=== PATIENT | male | born 1965 | race Caucasian/White ===

== ENCOUNTER 2021-08-14 07:57 | Outpatient (REF) | payer MEDICARE, OTHER, SELFPAY ==
[2021-08-14 11:12] LABS: MANUAL DIFF FLAG NO
[2021-08-14 11:21] LABS: Basophils Percent Auto 0.6 % (0-2); Eosinophils Absolute Auto 0.2 X10*3/uL (0.0-0.4); Eosinophils Percent Auto 3.1 % (0-4); Hematocrit 48.4 % (42.0-52.0); Imm Gran Abs Auto 0.05 X10*3/uL (0.00-0.03); Imm Gran Pct Auto 0.7 % (0.0-0.4); Lymphocytes Absolute Auto 2.1 X10*3/uL (1.2-4.9); Mean Corpuscular HGB Conc 33.1 g/dl (31.0-36.0); Mean Corpuscular Hemoglobin 31.4 pg (27.0-33.0); Mean Corpuscular Volume 95.1 fL (80.0-98.0); Mean Platelet Volume 10.9 fL (9.4-12.4); Monocytes Absolute Auto 0.6 X10*3/uL (0.1-1.2); Neutrophils Absolute Auto 4.1 x10*3/uL (2.0-8.3); Neutrophils Percent Auto 57.6 % (45-73); Platelet Count 273 X10*3/uL (160-400); Red Blood Count 5.09 X10*6/uL (4.60-5.80); Red Cell Distribution Width 12.2 % (11.0-16.0); White Blood Count 7.1 X10*3/uL (4.8-10.8)
[2021-08-14 11:24] LABS: Appearance Urine CLEAR; Color Urine YELLOW; Glucose Urine UA NEG (NEG); Leukocyte Esterase Urine NEG (NEG); Nitrite Urine NEG (NEG); PH 6.5 (5.0-8.0); Specific Gravity - Urine 1.025 (1.005-1.025); Urine Blood NEG (NEG); Urine Ketones NEG (NEG); Urine Protein NEG (NEG-TRACE)
[2021-08-14 12:03] LABS: Prostate Specific Antigen Scr 0.75 ng/mL (<0.05-4.0); TSH reflex Free T4 0.92 uIU/mL (0.32-4.0)
[2021-08-14 12:06] LABS: Alanine Aminotransferase 22 U/L (0-40); Albumin Level 3.8 g/dL (3.5-5.0); Alkaline Phosphatase 55 U/L (39-117); Anion Gap 12 (12-20); Aspartate Amino Transferase 21 U/L (5-37); Bilirubin Total 1.1 mg/dL (0.0-1.0); Blood Urea Nitrogen 19 mg/dL (9-16); Calcium 9.3 mg/dL (8.4-10.2); Carbon Dioxide 28 mmol/L (22-29); Chloride 108 mmol/L (96-108); Cholesterol 212 mg/dL; Estimated Glomerular Filt Rate > 60; Glucose Fasting 101 mg/dL (60-99); HDL Cholesterol 39 mg/dL; LDL Cholesterol Calculated 155 mg/dl; Potassium 4.6 mmol/L (3.3-5.1); Sodium 143 mmol/L (135-145); Total Protein 7.1 g/dL (6.5-8.0); Triglycerides 92 mg/dL
[2021-08-14 12:57] LABS: Leukocytes Stool Qualitative NEGATIVE (NEGATIVE)
== END 2021-08-14 07:58 | disposition home or self-care (01) ==
LOC: HO.HMGCLDS 07:57
PROVIDERS: PCP Nurse Practitioner Family; Visit Provider Nurse Practitioner Family
DX: Z00.00 Encounter for general adult medical examination without abnormal findings (principal); Z12.5 Encounter for screening for malignant neoplasm of prostate; B83.9 Helminthiasis, unspecified
CPT/HCPCS: 36415; 80053; 80061; 81003; 84153; 84443; 85025; 87015; 87045; 87046; 87177; 87207; 87209; 87329; 89055

== ENCOUNTER 2024-07-25 15:30 | Outpatient (AMB) | payer MEDICARE, MEDICAID, SELFPAY ==
--- NOTE | 2024-07-25 15:37 | MHC.OFFWIV ---
Intake Vital Signs 07/25/24 15:38 Weight 238 lb BP 120/80 Blood Pressure Location Rt brachial Position Sitting Pulse 84 Pulse Source Pulse Oximeter Pulse Oximetry (%) 97 Oxygen Delivery Method Room Air Intake Visit Reasons: EP LT Ear Intake Note: Patient here for left ear pain that has been ongoing for a while now. Patient Tobacco Use Status: Never used Tobacco Allergies No Known Allergies Allergy (Verified 07/25/24 15:39) Do you need a note to return to daycare/school/sports/work: No HPI HPI Comments History of Present Illness Details Patient is a 59yo M with hx of Lt ear pain Starting in 2020 he had an incident where he beleived he perforated his TM with a Q tip He said he was having pain, headaches etc Was seen in the office for this issue and had ear cleaned and given neomysin for issue Issue has been ongoing for a while now with intermittent L ear pain and pressure and intermittent ringing At the same time has had ongoing intermittent L lower gum abscess He has been seeing a dentist for this issue and referred to maxillofacial surgeon and waiting on an appointment for them He denies R sided symptoms 3.5 weeks ago he tried a left over ampicillin which helped but feels like gum and ear pain worse again Has had 4-6 attempts of amoxicillin in [id number] Pain level currently minimal. States symptoms worse when tired Pressure L sided ear with ringing; low whistle sound States intermittent L lower gum white abscess with drainage Said sometimes feels like LN swollen on L side No fever No cold symptoms of cough, congestion, CP or SOB currently He called the office and they told him to come to the walk in for possible PCP referral to ENT Also states stye to R lower eyelid Present x 2 years No pain, 0/10 No drainage aside from when he tried to pop it and it was clear drainage PFSH Social History Patient Tobacco Use Status: Never used Tobacco Current occupational status: disabled Cognitive needs: No Hearing needs: No Vision needs: No Review of Systems Const Denies chills, Denies fever(s) and Denies headache(s) Eyes Denies change in vision and Reports other (stye R lower eyelid) ENT Denies dizziness, Reports otalgia, Denies headache(s), Reports mouth lesions, Reports mouth pain, Denies nasal congestion, Denies nasal discharge, Denies sinus pressure, Denies sore throat, Denies throat swelling and Denies tongue swelling Card Denies chest pain, Denies syncope and Denies dyspnea Resp Denies chest congestion, Denies cough and Denies dyspnea Musc Denies myalgias Skin/Breast Denies rash Neuro Denies confusion, Denies dizziness, Denies syncope and Denies headache(s) Psych Denies confusion Aller/Immun Denies throat swelling and Denies tongue swelling Physical Exam Vital Signs: Last Vital Signs Pulse 84 07/25/24 15:38 BP 120/80 07/25/24 15:38 Pulse Ox 97 07/25/24 15:38 Oxygen Delivery Method Room Air 07/25/24 15:38 General: Non-toxic, NAD. Speaking full sentences. Skin: Warm dry throughout Eye: EOMI, PERRL. R lower eyelid has one external white pustule without active discharge. No surrounding erythema or discharge. Non-tender. No conjunctival erythema HENT: Airway patent. Uvula midline. No pharyngeal erythema or edema. No DIRECT MARKETING MANAGER. L lower gingivae lateral to tooth #18 pt has small vesicular lesion with some surroundign gingival edema without active drainage. No other dental abscesses or lesions noted Bilateral canals clear. TM non-erythematous, non-bulging. No TM perforation or hemotympanum noted. No mastoid tenderness to palpation There was small area of cerumen L canal and verbal consent obtained and currette used to remove without complication. Lymph: No lymphadenopathy bilaterally to tonsillar region or neck Respiratory: CTA bilaterally. No wheezes, rales or rhonchi Cardiac: RRR. No murmur MSK: Full ROM extremities. Neurology: Alert. No aphasia or facial droop. Gait without abnormality Psych: Good mood and affect Const General: No confusion Orientation/consciousness: No confusion Neuro General: No confusion Assessment & Plan Assessment & Plan (1) Ear pain, left: Comment: chronic Code(s): H92.02 - Otalgia, left ear Plan: No infection ENT referral potentially from PCP. See extensive note left for PCP (2) Dental abscess: Code(s): K04.7 - Periapical abscess without sinus Plan: Augmentin No sepsis or concern for posterior pharyngeal abscess Discussed head elevation and dental follow up He will call [facility] to see if they accept insurance See PCP note (3) Stye: Comment: chronic Code(s): H00.019 - Hordeolum externum unspecified eye, unspecified eyelid Qualifiers: Laterality: right Eyelid: lower Qualified Code(s): H00.012 - Hordeolum externum right lower eyelid Plan: See note left to PCP. Maybe optho referral Discussed with pt to use warm compress No infection noted Medications: New amoxicillin-pot clavulanate 875-125 mg 1 tab PO BID 14 tabs 0RF Coding Level of Care Code Est Pt Level 3 (46038) Diagnoses Ear pain, left H92.02 Dental abscess K04.7 Hordeolum externum of right lower eyelid H00.012 Laterality: right Eyelid: lower
[2024-07-25 15:38] VITALS: BP 120/80; PULSE 84; O2SAT 97
--- OUTSIDE RECORDS SUMMARY | 2024-07-25 18:01 | XMS_ITS | Clinical Summary ---
Author Organization [facility] Address [address] [place] [address] Care Team Providers Care Business Analyst Consultant Name Role Phone Unavailable Primary Care Provider Unavailabl e Source Comments PLEASE NOTE, if this patient is a minor, it may be UNLAWFUL to discuss sensitive information that is contained in these records (such as FAMILY PLANNING, MENTAL HEALTH or SUBSTANCE ABUSE) with the minor patient's parent or other person without the patient's specific authorization.[facility] Allergies No known active allergies Medications No known medications Active Problems Problem Noted Date Diagnosed Date Chronic back pain 03/29/2014 Social History Tobacco Use Types Packs/Day Years Used Date Smoking Tobacco: Never Alcohol Use Standard Drinks/Week Comments Yes 0 (1 standard drink = 0.6 oz pur e alcohol) sometimes Sex and Gender Information Value Date Recorded Sex Assigned at Not on file Legal Sex Male 12:28 PM PDT Gender Identity Not on file Sexual Orientation Not on file Last Filed Vital Signs Vital Sign Reading Time Taken Comments Blood Pressure 110/70 03/29/2014 2:00 PM EST Pulse 68 03/29/2014 2:00 PM EST Temperature 36.6 ??C (97.8 ??F) 03/29/2014 2:[address] Respiratory Rate 15 03/29/2014 2:00 PM EST Oxygen Saturation - - Inhaled Oxygen Concentration - - Weight 90.3 kg (199 lb) 03/29/2014 2:00 PM EST Height 180.3 cm (5' 11 ) 03/29/2014 2:00 PM EST Body Mass Index 27.75 03/29/2014 2:00 PM EST Plan of Treatment Not on file Insurance [employer]AF[employer] [place]ICARE [place]
== END 2024-07-25 16:26 | disposition home or self-care (01) ==
PROVIDERS: PCP Nurse Practitioner Family; Visit Provider Physician Assistant
DX: H92.02 Otalgia, left ear (principal); K04.7 Periapical abscess without sinus; H00.012 Hordeolum externum right lower eyelid

== ENCOUNTER → 2024-07-25 15:30 | Outpatient (BNVA) | payer MEDICARE, MEDICAID, SELFPAY | PROVIDERS: PCP Nurse Practitioner Family | DX: H92.02 Otalgia, left ear (principal); K04.7 Periapical abscess without sinus; H00.012 Hordeolum externum right lower eyelid | CPT/HCPCS: 99212 ==

== ENCOUNTER 2024-09-26 15:56 | Outpatient (AMB) | payer MEDICARE, MEDICAID, SELFPAY ==
[2024-09-26 16:01] VITALS: BP 118/80; PULSE 83; O2SAT 96; BMI 32.2
--- NOTE | 2024-09-26 16:01 | MHC.PC.OV ---
Vital Signs 09/26/24 16:01 Height 5 ft 11 in Weight 231 lb BMI 32.2 BP 118/80 Blood Pressure Location Lt brachial Position Sitting Pulse 83 Pulse Source Pulse Oximeter Pulse Oximetry (%) 96 Intake Visit Reasons: Annual PE Marketing Operations Intern Required: No Allergies No Known Allergies Allergy (Verified 09/26/24 16:32) Medication List - Last Reconciled 09/26/24 by URBANO Cruz No Known Home Meds Tobacco use date assessed: 09/26/24 Dental Screening Dental Screen Date: 09/26/24 Did you have a dental visit in the last 12 months?: Yes Did you have a dental problem in the last 6 months where you did not have access to dental care?: No Was dental information given to patient?: Patient has dentist HPI Annual PE HPI Details History of Present Illness The patient is a 59-year-old male presenting with a physical exam and complaints of shortness of breath on exertion and a dental abscess. The dental abscess is located on the left lower side, with recurrent pustule formation and pain radiating to the left ea, further describing tinnitus. The patient reports faint erythema and slight tenderness upon touch, with no active bulging or pus noted. He is scheduled to see a dentist next week for further evaluation. The patient also reports (what sounds like) gynecomastia with tenderness in the left breast, particularly just outside of the areola at the 1-3 o'clock position. He recalls previous imaging that showed no cancer but cannot recall specific findings? An ultrasound and mammogram are planned to reassess the condition. The patient denies any history of smoking tobacco but admits to intermittent marijuana use. He denies urinary issues, fevers, chills, blurred vision, abdominal pain, blood in stool, constipation, diarrhea, and active chest pain. He is due for colon cancer screening and has expressed interest in the Cologuard test, which will be ordered. had referred him to GI previously, never went Health Maintenance - Colon cancer screening with Cologuard test ordered Social History - Substance use: Denies tobacco use, admits to intermittent marijuana use Review of Systems - Cardiovascular: Denies chest pain - Respiratory: Reports dyspnea on exertion - Gastrointestinal: Denies abdominal pain, blood in stool, constipation, diarrhea - Genitourinary: Denies urinary issues - Neurological: Denies blurred vision - General: Denies fevers, chills Physical Exam General: Cooperative, healthy appearing, comfortable, no acute distress and well developed Orientation: Patient oriented x3 Limitations: No limitations Head: Normal to inspection Ears: Hearing grossly normal bilaterally, but patient reports pain in the left ear Nose: Normal external nose present Face and sinus: Normal facial exam, on the left lower side with faint erythema and slight tenderness to posterior lower gums, without active drainage or pustule Eyes: Appearance normal, both eyes and all related structures Neck: Normal visual inspection and Yes full ROM, no carotid bruits noted Respiratory: Normal respiratory effort and able to speak in complete sentences. Clear to auscultation bilaterally Cardiovascular: Regular rate and rhythm. Normal S1 and S2 GI: Normal to inspection. Soft to palpation and nontender : Testicles without masses/lesions and no hernias appreciated Skin: No rashes or lesions noted, left breast is larger than right, faint tenderness with palpation to 2-3 O'clock position Neuro: Patient oriented x3 Results Plan The patient will undergo a colon cancer screening using the Cologuard test, as he expressed interest in this non-invasive option. An ultrasound and mammogram are planned to evaluate the gynecomastia in the left breast, given the tenderness and previous imaging history. The patient is advised to follow up with a dentist for the dental abscess, which presents with recurrent pustule formation and pain radiating to the left ear. Patient was informed and verbally consented to the use of an ambient scribe for clinic note documentation during this visit. Discussion Notes I discussed with the patient the importance of addressing the dental abscess with a dentist, as it has been causing recurrent issues and pain. We also talked about the need for further imaging of the left breast to assess the gynecomastia, considering his previous imaging results and current symptoms. The patient was informed about the colon cancer screening options, and he opted for the Cologuard test, which I will order. Patient Instructions - Follow up with your dentist for the dental abscess. - Complete the Cologuard test for colon cancer screening as ordered. - Attend the scheduled ultrasound and mammogram for your left breast. [facility] Surgical History S/P hernia repair S/P wisdom tooth extraction S/P shoulder surgery No pertinent past surgical history Social History Patient Tobacco Use Status: Never used Tobacco e-Cigarette/Vaping Use: Never Used Current occupational status: disabled Cognitive needs: No Hearing needs: No Vision needs: Yes Questionnaire PHQ-9 Over the last 2 weeks, how often have you been bothered by any of the following problems? 59104 - PHQ-9 Billing: Patient declined-do not bill Source: Developed by Drs. Adolfo Bernstein, Corinne Romero, Shne Mosley and colleagues, with an educational estevan from [employer] Thrive Questionnaire Date Thrive assessed: 09/26/24 I am a: Patient What is your living situation today?: I choose not to answer this question Within the past 12 months, did the food you bought not last and you didn't have the money to get more?: I choose not to answer this question Within the past 12 months, did you worry whether your food would run out before you got money to buy more?: I choose not to answer this question Do you have trouble paying for medicines?: I choose not to answer this question Do you have trouble getting transportation to medical appointments?: I choose not to answer this question Do you have trouble paying your heating and electricity bill?: I choose not to answer this question Do you have trouble taking care of your child, family member or friend?: I choose not to answer this question Do you have trouble with day-to-day activities such as bathing, preparing meals, shopping, managing finances, etc.?: I choose not to answer this question Are you currently unemployed and looking for a job?: I choose not to answer this question Are you interested in more education?: I choose not to answer this question Please select the resources that you would like help with: None Currently or been in a relationship where the following occur: I choose not to answer THRIVE Score: 0 AUDIT C Alcohol Use Questionnaire (AUDIT-C) 1. How often do you have a drink containing alcohol?: 2-4 times a month 2. How many drinks containing alcohol do you have on a typical day when you are drinking?: 1 or 2 3. How often do you have six or more drinks on one occasion?: Never Total Score: 2 Score Reviewed/Action Taken: Yes CALEB-7 AMB Questionnaire CALEB-7 Date CALEB - 7 assessed: 09/26/24 (patient declined) Source: Developed by Drs. Adolfo Bernstein, oCrinne Romero, Shen Mosley and colleagues, with an educational estevan from [employer] Physical exam (Primary Care) Vital Signs: Last Vital Signs Pulse 83 09/26/24 16:01 BP 118/80 09/26/24 16:01 Pulse Ox 96 09/26/24 16:01 BMI result Body Mass Index 32.2 Tobacco/Smoking Status: Tobacco use Status Tobacco use date assessed 09/26/24 09/26/24 16:04 Patient Tobacco Use Status Never used Tobacco 09/26/24 16:04 e-Cigarette/Vaping Use Never Used 09/26/24 16:10 Thrive Assessment: Date of Thrive Assessment Date Thrive assessed 09/26/24 09/26/24 16:04 Currently or been in a relationship where the following occur: I choose not to answer Coding Level of Care Code Est Pt Prev Care 40-64y(15269) Diagnoses Physical exam Z00.00 Screening PSA (prostate specific antigen) Z12.5 Encounter for routine adult physical exam with abnormal findings Z00.01 Breast pain, left N64.4 Dental abscess K04.7 Assessment & Plan Assessment & Plan (1) Physical exam: Code(s): Z00.00 - Encounter for general adult medical examination without abnormal findings Category: Medical (2) Screening PSA (prostate specific antigen): Code(s): Z12.5 - Encounter for screening for malignant neoplasm of prostate Category: Medical (3) Encounter for routine adult physical exam with abnormal findings: Code(s): Z00.01 - Encounter for general adult medical examination with abnormal findings Category: Medical (4) Breast pain, left: Code(s): N64.4 - Mastodynia Category: Medical (5) Dental abscess: Code(s): K04.7 - Periapical abscess without sinus Category: Medical Plan . Orders: Orders TSH reflex Free T4 Today Z00.00 - Encounter for general adult medical examination without abnormal findings UA CC w/rflx Micro + Cult Today Z00.00 - Encounter for general adult medical examination without abnormal findings Lipid Panel Today Z00.00 - Encounter for general adult medical examination without abnormal findings AMB EKG-In Office Today Z00.01 - Encounter for general adult medical examination with abnormal findings MM diagnostic mammo unilat LT Today N64.4 - Mastodynia Complete Blood Count Auto Diff Today Z00.00 - Encounter for general adult medical examination without abnormal findings Comprehensive [place]. Panel Fast Today Z00.00 - Encounter for general adult medical examination without abnormal findings Prostate Specific Antigen Scr Today Z12.5 - Encounter for screening for malignant neoplasm of prostate US breast LT complete Today N64.4 - Mastodynia Referrals Cologuard Test Z12.11 - Encounter for screening for malignant neoplasm of colon, Z12.12 - Encounter for screening for malignant neoplasm of rectum
--- OUTSIDE RECORDS SUMMARY | 2024-09-26 17:59 | XMS_ITS | Clinical Summary ---
Author Organization [facility] Address [address] [place] [address] Care Team Providers Care Social Media Job Titles Name Role Phone Unavailable Primary Care Provider [...] 68 03/29/2014 2:00 PM EST Temperature 36.6 C (97.8 F) 03/29/2014 2:00 PM EST Respiratory Rate 15 03/29/2014 2:00 PM EST Oxygen Saturation - - Inhaled Oxygen Concentration - - Weight 90.3 kg (199 lb) 03/29/2014 2:00 PM EST Height 180.3 cm (5' 11 ) 03/29/2014 2:00 PM EST Body Mass Index 27.75 03/29/2014 2:00 PM EST Plan of Treatment Not on file Insurance [employer] [place]
== END 2024-09-26 17:04 | disposition home or self-care (01) ==
PROVIDERS: PCP Nurse Practitioner Family; Visit Provider Nurse Practitioner Family
DX: Z00.00 Encounter for general adult medical examination without abnormal findings (principal); Z12.5 Encounter for screening for malignant neoplasm of prostate; N64.4 Mastodynia; K04.7 Periapical abscess without sinus

== ENCOUNTER → 2024-09-26 15:56 | Outpatient (BNVA) | payer MEDICARE, MEDICAID, SELFPAY | PROVIDERS: PCP Nurse Practitioner Family; Visit Provider Nurse Practitioner Family | DX: Z00.01 Encounter for general adult medical examination with abnormal findings (principal); N64.4 Mastodynia; K04.7 Periapical abscess without sinus | CPT/HCPCS: 99396 ==

== ENCOUNTER 2024-10-03 09:18 | Outpatient (REF) | payer MEDICARE, MEDICAID, SELFPAY ==
--- OUTSIDE RECORDS SUMMARY | 2024-10-03 10:11 | XMS_ITS | Clinical Summary ---
Author Organization [facility] Address [address] [place] [address] Care Team Providers Care Banquet Steward Name Role Phone Unavailable Primary Care Provider [...]
[2024-10-03 13:18] LABS: Appearance Urine Cloudy; Color Urine Yellow; Glucose Urine UA Negative (Negative); Leukocyte Esterase Urine Negative (Negative); Nitrite Urine Negative (Negative); Specific Gravity - Urine >= 1.030 (1.005-1.025); Urine Blood Negative (Negative); Urine Ketones Negative (Negative); Urine Protein Trace mg/dL (Neg-Trace)
[2024-10-03 13:32] LABS: MANUAL DIFF FLAG NO
[2024-10-03 13:36] LABS: Basophils Absolute Auto 0.1 X10*3/uL (0.0-0.2); Basophils Percent Auto 0.8 % (0-2); Eosinophils Absolute Auto 0.2 X10*3/uL (0.0-0.4); Eosinophils Percent Auto 2.7 % (0-4); Hematocrit 50.2 % (42.0-52.0); Hemoglobin 16.4 g/dl (14.0-18.0); Imm Gran Abs Auto 0.04 X10*3/uL (0.00-0.03); Imm Gran Pct Auto 0.6 % (0.0-0.4); Lymphocytes Percent Auto 32.1 % (20-40); Mean Corpuscular HGB Conc 32.7 g/dl (31.0-36.0); Mean Corpuscular Hemoglobin 31.4 pg (27.0-33.0); Mean Corpuscular Volume 96.2 fL (80.0-98.0); Mean Platelet Volume 10.6 fL (9.4-12.4); Monocytes Absolute Auto 0.6 X10*3/uL (0.1-1.2); Monocytes Percent Auto 9.6 % (2-11); Neutrophils Absolute Auto 3.4 x10*3/uL (2.0-8.3); Neutrophils Percent Auto 54.2 % (45-73); Platelet Count 264 X10*3/uL (160-400); Red Blood Count 5.22 X10*6/uL (4.60-5.80); Red Cell Distribution Width 12.3 % (11.0-16.0); White Blood Count 6.4 X10*3/uL (4.8-10.8)
[2024-10-03 14:18] LABS: Prostate Specific Antigen Scr 1.48 ng/mL (<0.05-4.0)
[2024-10-03 14:20] LABS: Alanine Aminotransferase 25 U/L (0-40); Albumin Level 4.1 g/dL (3.5-5.0); Alkaline Phosphatase 58 U/L (39-117); Anion Gap 12 (12-20); Aspartate Amino Transferase 32 U/L (5-37); Bilirubin Total 0.8 mg/dL (0.0-1.0); Blood Urea Nitrogen 22 mg/dL (9-16); Calcium 9.2 mg/dL (8.4-10.2); Carbon Dioxide 28 mmol/L (22-29); Chloride 110 mmol/L (96-108); Cholesterol 210 mg/dL (<200); Estimated Glomerular Filt Rate > 60; Glucose Fasting 102 mg/dL (60-99); HDL Cholesterol 36 mg/dL (>40); LDL Cholesterol Calculated 144 mg/dL (<100); Potassium 4.4 mmol/L (3.3-5.1); Sodium 146 mmol/L (135-145); Total Protein 7.6 g/dL (6.5-8.0); Triglycerides 152 mg/dL (<150)
== END 2024-10-03 09:19 | disposition home or self-care (01) ==
LOC: HO.HMGCLDS 09:18
PROVIDERS: PCP Nurse Practitioner Family; Visit Provider Nurse Practitioner Family
DX: Z00.00 Encounter for general adult medical examination without abnormal findings (principal); Z12.5 Encounter for screening for malignant neoplasm of prostate
CPT/HCPCS: 36415; 80053; 80061; 81003; 84153; 84443; 85025